=== PATIENT | female | born 1945 | race Caucasian/White ===

== ENCOUNTER 2017-06-12 06:13 | Day surgery (SDC) | payer MEDICARE ==
[~2017-06-12] VITALS: Ht 162.6 cm; Wt 56.8 kg
[2017-06-12 06:47] VITALS: BP 182/91; PULSE 61; RESP 20; TEMP 97.7; O2SAT 95
[2017-06-12] MEDS ORDERED: IBUP200T47 PO (07:25)
[2017-06-12] MEDS ORDERED: LEVO100T5 PO (07:25)
[2017-06-12] MEDS ORDERED: SYSTSOL EACH EYE (07:25)
[2017-06-12] MEDS ORDERED: CETI10CA3 (07:25)
[2017-06-12] MEDS ORDERED: META0.522 (07:25)
[2017-06-12] MEDS ORDERED: [UNRECOGNIZED DRUG - OTHER] (07:25)
[2017-06-12] MEDS ORDERED: LORA1TAB12 PO (07:25)
[2017-06-12] MEDS ORDERED: CO Q100C9 (07:25)
[2017-06-12] MEDS ORDERED: ASPI81TA81 (07:25)
[2017-06-12] MEDS ORDERED: CITA10TA4 PO (07:25)
[2017-06-12 07:49] LABS: AUTOMATED NEUTROPHIL # 1.8 TH/MM3 (1.8-7.7); BASOPHIL % 0.6 % (0.0-2.0); EOSINOPHIL # 0.1 TH/MM3 (0-0.4); EOSINOPHIL % 1.3 % (0.0-4.0); HEMOGLOBIN 12.5 GM/DL (11.6-15.3); LYMPH % 55.3 % (9.0-44.0); LYMPHOCYTE # 2.9 TH/MM3 (1.0-4.8); MEAN CELL VOLUME 89.4 FL (80.0-100.0); MEAN CORPUSCULAR HEMOGLOBIN 30.3 PG (27.0-34.0); MEAN CORPUSCULAR HGB CONC 33.9 % (32.0-36.0); MEAN PLATELET VOLUME 7.8 FL (7.0-11.0); MONO % 9.8 % (0.0-8.0); MONOCYTE # 0.5 TH/MM3 (0-0.9); PLATELET COUNT 217 TH/MM3 (150-450); RED BLOOD COUNT 4.13 MIL/MM3 (4.00-5.30); RED CELL DISTRIBUTION WIDTH 15.2 % (11.6-17.2); WHITE BLOOD COUNT 5.3 TH/MM3 (4.0-11.0)
[2017-06-12 08:01] LABS: PROTHROMBIN TIME - PATIENT 10.1 SEC (9.8-11.6)
[2017-06-12 08:06] LABS: BICARBONATE 27.9 MEQ/L (21.0-32.0); CALCIUM 9.6 MG/DL (8.5-10.1); CREATININE 0.93 MG/DL (0.50-1.00)
[2017-06-12] MEDS ORDERED: LORazepam 2 MG/ML VIAL IV PUSH ONE (09:00)
[2017-06-12 09:50] VITALS: BP 166/89; PULSE 59; RESP 18; TEMP 98.1; O2SAT 94
--- NOTE | 2017-06-12 10:00 | RADRPT ---
EXAM DATE/TIME: 06/12/2017 08:53 [place] COMPARISON: No previous studies available for comparison.88 INDICATIONS : Patient with a history of possible multiple sclerosis. MEDICAL HISTORY : High Cholesterol HTN SURGICAL HISTORY : Right shoulder Right thumb Right breast cyst ENCOUNTER: Initial ACUITY: 3 weeks PAIN SCORE: 3/10 LOCATION: right shoulder LUMBAR PUNCTURE TIME: 0940 hours FLUORO TIME: 0.6 minutes IMAGE SERIES: 1 ACCESS LEVEL: L2-3 FLUID: 13 cc of clear CSF was collected and sent to the laboratory for analysis. PROCEDURE : 1. Fluoroscopic guided lumbar puncture. The risks, benefits and alternatives to the procedure were explained and verbal and written consent w as obtained. The site was prepped in sterile fashion. Full sterile technique was used, including ca p, mask, sterile gloves and gown and a large sterile sheet. Hand hygiene and 2% chlorhexidine and/or betadine/alcohol prep was utilized per protocol for cutaneous antisepsis. The skin and subcutaneous tissues were infiltrated with local anesthetic solution. With fluoroscopic guidance the lumbar thecal sac was punctured at the level above. The fluid describ ed above was removed without difficulty. The patient tolerated the procedure well and there were no complications. CONCLUSION: Uncomplicated fluoroscopically guided lumbar puncture. Silvio Romo MD on June 12, 2017 at 9:57 Board Certified Radiologist. This report was verified electronically.
[2017-06-12 10:51] LABS: TOTAL PROTEIN,CSF 36.7 MG/DL (15.0-45.0)
[2017-06-12 11:28] VITALS: BP 149/86; PULSE 61; RESP 20; O2SAT 94
[2017-06-12 11:44] LABS: VOLUME TUBE # 1 2.5 ML
[2017-06-12 11:45] LABS: CSF LYMPHOCYTES 100 %; CSF NEUTROPHILS 0 %; RBC TUBE #4 5 /MM3; SUPERNATE COLOR TUBE #1 CLEAR (CLEAR); WBC TUBE #4 2 /MM3 (0-10)
[2017-06-13 16:38] LABS: OLIGOCLONAL BANDING CSF 5 bands; OLIGOCLONAL BANDING INTERPRET 0 bands (<4); OLIGOCLONAL BANDING SERUM 5 bands
[2017-06-15 19:52] LABS: VDRL CSF NON-REACTIVE (NON-REACTVE)
== END 2017-06-12 11:50 | disposition home or self-care (01) ==
LOC: HROP 06:13 → HRIP 06:23 → HROP 11:50
PROVIDERS: ATTEND Specialist
DX: G35 Multiple sclerosis (principal); Z13.858 Encounter for screening for other nervous system disorders
CPT/HCPCS: 62270; 77003; 80048; 82945; 83873; 83916; 84157; 85025; 85610; 85730; 86592; 86618; 87015; 87070; 87116; 87205; 87206; 88108; 89051; J2060